=== PATIENT | female | born 1975 | race Two or more races ===

== ENCOUNTER 2018-12-07 06:10 | Emergency (ER) | payer BC, OTHER ==
[~2018-12-07] VITALS: Ht 162.6 cm; Wt 102.1 kg
[2018-12-07] MEDS ORDERED: ceFAZolin IM 1GM/2.5ML STERILE WATER IM ONE (07:45)
[2018-12-07] MEDS ORDERED: TETANUS-DIPTH-ACEL PERTUSSIS 0.5ML SYRG IM ONE (07:45)
[2018-12-07] MEDS ORDERED: ceFAZolin 1GM VL ONE (07:50)
[2018-12-07 07:53] VITALS: BP 141/92
[2018-12-07] MEDS ORDERED: IBUPROFEN 800 MG TAB PO ONE (08:30)
== END 2018-12-07 08:41 | disposition home or self-care (01) ==
LOC: ER 06:10
DX: S62.630B Displaced fracture of distal phalanx of right index finger, initial encounter for open fracture (principal); W22.8XXA Striking against or struck by other objects, initial encounter; Y93.89 Activity, other specified; Y92.89 Other specified places as the place of occurrence of the external cause; Y99.8 Other external cause status
CPT/HCPCS: 29130; 73140; 90471; 90715; 96372; 99283; J0690